=== PATIENT | male | born 1950 ===

== ENCOUNTER 2018-05-12 23:47 | Emergency (ER) | payer MEDICARE ==
[2018-05-13 00:01] VITALS: RESP 20
--- NOTE | 2018-05-13 00:08 | C.PDOC ---
History Of Present Illness Patient presents to the ER with a complaint of dizziness for the past 2-3 days, associated with scotomas. No field cuts, no blurry vision. Patient is unsure of his sugar levels. He is currently speaking in complete sentences. Denies weakness, slurred speech, prolonged trips, trauma, nausea, or vomiting. Time Seen by Provider: 05/13/18 00:08 Chief Complaint (Nursing): Dizziness/Lightheaded History Per: Patient History/Exam Limitations: no limitations Onset/Duration Of Symptoms: Days (2-3) Current Symptoms Are (Timing): Still Present Activity At Onset Of Symptoms: Other (Not known) Seizure Or Post-ictal Symptoms: None Fall Associated With With Symptoms: No Severity: Moderate Pain Scale Rating Of: 4 Recent travel outside of the [place]: No - Symptoms Of CVA Associated Symptoms: denies: Impaired Speech, Seizure Activity, Decreased Ability To Walk, New Confusion Past Medical History Reviewed: Historical Data, Nursing Documentation, Vital Signs Vital Signs: Last Vital Signs Temp 98.7 F 05/12/18 23:56 Pulse 101 H 05/12/18 23:56 Resp 20 05/12/18 23:56 BP 162/93 H 05/12/18 23:56 Pulse Ox 99 05/12/18 23:56 - Medical History PMH: COPD, HTN Family History: States: No Known Family Hx - Social History Hx Alcohol Use: Yes Hx Substance Use: No - Immunization History Hx Tetanus Toxoid Vaccination: No Hx Influenza Vaccination: No Hx Pneumococcal Vaccination: No Review Of Systems Constitutional: Negative for: Fever, Chills Eyes: Positive for: Other (Scotomas) Cardiovascular: Negative for: Chest Pain, Palpitations Respiratory: Negative for: Cough, Shortness of Breath Gastrointestinal: Negative for: Nausea, Vomiting Neurological: Positive for: Dizziness. Negative for: Weakness, Change in Speech Physical Exam - Physical Exam Appears: Non-toxic Skin: Warm, Dry Head: Normacephalic Eye(s): bilateral: Normal Inspection, PERRL, EOMI, Other (? floaters) Oral Mucosa: Moist Neck: Trachea Midline, Supple Chest: Symmetrical, No Tenderness Cardiovascular: Rhythm Regular Respiratory: No Rales, No Rhonchi, No Wheezing Gastrointestinal/Abdominal: Soft, No Tenderness, Other (Obese) Extremity: Other (Moves all extremities) Neurological/Psych: Oriented x3, Other (No focal deficits) Gait: Steady ED Course And Treatment - Laboratory Results Result Diagrams: 05/13/18 00:40 05/13/18 00:40 ECG: Interpreted By Me, Viewed By Me ECG Rhythm: Sinus Rhythm (103), R BBB, Nonspecific Changes O2 Sat by Pulse Oximetry: 99 (Room air) Pulse Ox Interpretation: Normal Progress Note: CT head, EKG, blood work, CXR, and urinalysis ordered. IV fluids administered. Medical Decision Making Medical Decision Making: Upon provider reevaluation patient is feeling better, is medically stable, and requires no further treatment in the ED at this time. Patient will be discharged home . Counseling was provided and all questions were answered regarding diagnosis and need for follow up with the referred clinic. There is agreement to discharge plan. Return if symptoms persist or worsen. Disposition Counseled Patient/Family Regarding: Studies Performed, Diagnosis, Need For Followup - Disposition Referrals: [facility] [Outside] [facility] [Outside] Elieser Avila [Staff Provider] - Disposition: HOME/ ROUTINE Disposition Time: 00:08 Condition: FAIR Additional Instructions: Please return if symptoms recur Instructions: Floaters in the Eye, Hyperglycemia, Adult (DC), Vertigo (a Type of Dizziness), Diabetic Retinopathy Forms: [employer] (H[place]er) - Clinical Impression Clinical Impression: Dizziness, Floaters, Hyperglycemia, Diabetic retinopathy - Scribe Statement The provider has reviewed the documentation as recorded by the Scribisa Whitmore All medical record entries made by the Scribe were at my direction and personally dictated by me. I have reviewed the chart and agree that the record accurately reflects my personal performance of the history, physical exam, medical decision making, and the department course for this patient. I have also personally directed, reviewed, and agree with the discharge instructions and disposition.
[2018-05-13] MEDS ORDERED: Sodium Chloride 0.9% 1,000 ML IV ONE (00:20)
[2018-05-13 00:36] LABS: VENOUS BLOOD GAS BASE EXCESS -1.1 mmol/L (0.0-2.0); VENOUS BLOOD GAS PCO2 45 mmHg (40-60); VENOUS BLOOD GAS PO2 24 mm/Hg (30-55); VENOUS BLOOD PH 7.35 (7.32-7.43)
[2018-05-13] MEDS ORDERED: Sodium Chloride 0.9% 1,000 ML ONE (00:38)
[2018-05-13 00:43] LABS: BASO # 0.1 K/uL (0.0-0.2); BASO % 0.9 % (0.0-2.0); EOS # 0.3 K/uL (0.0-0.7); EOS % 2.9 % (0.0-4.0); HEMOGLOBIN 13.5 g/dL (12.0-18.0); LYMPH # 3.3 K/uL (1.0-4.3); LYMPH % 35.4 % (20.0-40.0); MEAN CELL VOLUME 74.1 fL (80.0-94.0); MEAN CORPUSCULAR HEMOGLOBIN 23.4 pg (27.0-31.0); MEAN CORPUSCULAR HGB CONC 31.6 g/dL (33.0-37.0); MONO # 0.8 K/uL (0.0-0.8); MONO % 8.5 % (0.0-10.0); NEUT # 4.8 K/uL (1.8-7.0); NEUT % 52.3 % (50.0-75.0); NRBC % 0.1 % (0.0-2.0); RBC 5.77 Mil/uL (4.40-5.90); RED CELL DISTRIBUTION WIDTH 14.4 % (11.5-14.5); WHITE BLOOD COUNT 9.2 K/uL (4.8-10.8)
[2018-05-13 01:15] LABS: ALB/GLOB RATIO 1.3 (1.0-2.1); ALBUMIN 4.4 g/dL (3.5-5.0); BLOOD UREA NITROGEN 22 mg/dL (9-20); CALCIUM 9.1 mg/dl (8.6-10.4); GFR NON-AFRICAN AMERICAN > 60
[2018-05-13 01:16] LABS: ALT/SGPT 27 U/L (21-72); AST/SGOT 18 U/L (17-59); LIPASE 112 U/L (23-300)
[2018-05-13 02:52] VITALS: BP 154/90; PULSE 89; TEMP 98.4; O2SAT 98
[2018-05-13 03:15] LABS: URINE BILIRUBIN NEGATIVE (NEGATIVE); URINE BLOOD 1+ (NEGATIVE); URINE CLARITY Clear (Clear); URINE COLOR Yellow (YELLOW); URINE GLUCOSE (UA) NORMAL (Normal); URINE LEUKOCYTE ESTERASE NEG Leu/uL (Negative); URINE PROTEIN 2+ mg/dL (NEGATIVE); URINE UROBILINOGEN NORMAL mg/dL (0.2-1.0)
--- NOTE | 2018-05-13 07:00 | CT ---
Date of service: 05/13/2018 PROCEDURE: CT HEAD WITHOUT CONTRAST. HISTORY: Dizziness COMPARISON: None available. TECHNIQUE: Axial computed tomography images were obtained through the head/brain without intravenous contrast. Radiation dose: Total exam DLP = 1181.73 mGy-cm. This CT exam was performed using one or more of the following dose reduction techniques: Automated exposure control, adjustment of the mA and/or kV according to patient size, and/or use of iterative reconstruction technique. FINDINGS: HEMORRHAGE: No intracranial hemorrhage. BRAIN: No mass effect or edema. Scattered focal lucencies in the subcortical and periventricular white matter suggestive for chronic microvascular ischemic change. Bilateral basal ganglia calcifications. Age-appropriate cerebral and cerebellar atrophy. VENTRICLES: Unremarkable. No hydrocephalus. CALVARIUM: Unremarkable. PARANASAL SINUSES: Unremarkable as visualized. No significant inflammatory changes. MASTOID AIR CELLS: Unremarkable as visualized. No inflammatory changes. OTHER FINDINGS: Intracranial arterial calcifications. IMPRESSION: Chronic microvascular ischemic changes. No acute intracranial abnormality. If symptoms persists, consider correlation with MRi. A preliminary report was generated at 1:55 a.m. on 05/13/[address] Kameron Rose from [employer].
--- NOTE | 2018-05-13 08:11 | RAD ---
Date of service: 05/13/2018 PROCEDURE: CHEST RADIOGRAPH, 1 VIEW HISTORY: Diabetic COMPARISON: None available. FINDINGS: LUNGS: The lungs are well inflated. There is linear atelectasis/scarring in the right lower lobe. No focal consolidation. PLEURA: No pneumothorax or pleural effusion. CARDIOVASCULAR: There is mild cardiomegaly. Atherosclerotic aortic arch calcifications are present. OSSEOUS STRUCTURES: Within normal limits for the patient's age. VISUALIZED UPPER ABDOMEN: Normal. OTHER FINDINGS: None. IMPRESSION: No active pulmonary disease.
== END 2018-05-13 02:52 | disposition home or self-care (01) ==
LOC: C.ER 23:47
DX: E11.319 Type 2 diabetes mellitus with unspecified diabetic retinopathy without macular edema (principal); E11.65 Type 2 diabetes mellitus with hyperglycemia; H43.399 Other vitreous opacities, unspecified eye; R42 Dizziness and giddiness; I10 Essential (primary) hypertension; J44.9 Chronic obstructive pulmonary disease, unspecified
CPT/HCPCS: 70450; 71045; 80053; 81001; 82009; 82803; 82948; 83690; 85025; 93005; 96360; 99285; J7030